=== PATIENT | female | born 1980 | race Caucasian/White ===

== ENCOUNTER 2017-09-27 16:24 | Emergency (ER) | payer SELFPAY ==
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
[2017-09-27] MEDS ORDERED: IBUPROFEN 600 MG TABLET PO ONE (16:37)
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
== END 2017-09-27 18:00 | disposition home or self-care (01) ==
LOC: ER 16:24
DX: S29.019A Strain of muscle and tendon of unspecified wall of thorax, initial encounter (principal); S43.402A Unspecified sprain of left shoulder joint, initial encounter; V43.52XA Car driver injured in collision with other type car in traffic accident, initial encounter
CPT/HCPCS: 72072; 99283